=== PATIENT | female | born 1930 | race Caucasian/White ===

== ENCOUNTER 2022-08-28 14:53 | Inpatient (IN) | payer OTHER, MEDICAID ==
[~2022-08-28] VITALS: Ht 147.3 cm; Wt 49.9 kg
[2022-08-28 15:00] VITALS: BP_SYST 151
[2022-08-28 16:25] LABS: BASOPHILS % (AUTO) 0.5 % (0.0-2.0); EOSINOPHILS # (AUTO) 0.2 K/uL (0.0-0.4); EOSINOPHILS % (AUTO) 1.8 % (0.0-4.0); HEMATOCRIT 35.5 % (36-48); LYMPHOCYTES # (AUTO) 0.7 K/uL (1.0-5.5); LYMPHOCYTES % (AUTO) 7.3 % (20.5-51.5); MEAN CORPUSCULAR HEMOGLOBIN 30 pg (27-31); MEAN CORPUSCULAR HGB CONC 34 % (32-36); MEAN CORPUSCULAR VOLUME 88 fL (79.0-98.0); MONOCYTES # (AUTO) 0.6 K/uL (0.0-1.0); MONOCYTES % (AUTO) 6.6 % (1.7-9.3); NEUTROPHILS # (AUTO) 8.1 K/uL (1.8-7.7); NEUTROPHILS % (AUTO) 83.8 % (40.0-70.0); PLATELET COUNT (AUTO) 401 K/uL (130-430); RED BLOOD CELL COUNT(AUTO) 4.02 MIL/uL (4.2-6.2); RED CELL DISTRIBUTION WIDTH 13.8 % (9.0-15.0); WHITE BLOOD COUNT (AUTO) 9.7 K/uL (4.8-10.8)
[2022-08-28 16:53] LABS: ALANINE AMINOTRANSFERASE 46 U/L (12-78); ALBUMIN 2.4 g/dL (3.4-4.8); ANION GAP 7 (5-15); ASPARTATE AMINOTRANSFERASE 30 U/L (10-37); CALCIUM 9.4 mg/dL (8.4-11.0); CHLORIDE 100 mmol/L (98-107); CREATININE 0.83 mg/dL (0.55-1.30); GLUCOSE 182 mg/dL (70-99); TOTAL BILIRUBIN 0.3 mg/dL (0.0-1.0); UREA NITROGEN, BLOOD 29 mg/dL (8-21)
[2022-08-28] MEDS ORDERED: ASPIRIN 325 MG TABLET PO ONE (17:15)
[2022-08-28 18:03] LABS: BILIRUBIN,URINE NEGATIVE (NEGATIVE); BLOOD, URINE 1+ (NEGATIVE); CLARITY/URINE SLIGHTLY CLOUDY (CLEAR); COLOR,URINE YELLOW (YELLOW); GLUCOSE,URINE NEGATIVE (NEGATIVE); KETONES,URINE NEGATIVE (NEGATIVE); LEUKOCYTE ESTERASE ,URINE 3+ (NEGATIVE); NITRITE, URINE NEGATIVE (NEGATIVE); PROTEIN URINE TRACE (NEGATIVE); UROBILINOGEN,URINE 0.2 (0.2-1.0)
[2022-08-28 18:04] LABS: BACTERIA,URINE MANY /HPF (None Seen); WBC,URINE >100 /HPF (0-3)
[2022-08-28 18:05] LABS: MUCUS,URINE None Seen /LPF (None Seen)
[2022-08-28 22:45] VITALS: BP_SYST 148
[2022-08-29 06:08] VITALS: BP_SYST 140
[2022-08-29] MEDS ORDERED: cefTRIAXone 1 GM in D5W 50 ML IV ONE (09:30)
[2022-08-29] MEDS ORDERED: OXYB5TAB16 PO (12:26)
[2022-08-29] MEDS ORDERED: MELA10TA3 PO (12:26)
[2022-08-29] MEDS ORDERED: SENN8.6T19 PO (12:26)
[2022-08-29] MEDS ORDERED: ASPI-1393 PO (12:26)
[2022-08-29] MEDS ORDERED: IBUP-1969 PO (12:26)
[2022-08-29] MEDS ORDERED: TEMA15CA5 PO (12:26)
[2022-08-29] MEDS ORDERED: DOCU250C14 PO (12:26)
[2022-08-29] MEDS ORDERED: LISI10TA29 PO (12:26)
[2022-08-29] MEDS ORDERED: HYDROcodone/ACETAMIN 5-325 MG TAB (NORCO/ VICODIN) PO PRN (13:00)
[2022-08-29] MEDS ORDERED: LORazepam 2 MG/ML VIAL IVP PRN (13:00)
[2022-08-29] MEDS ORDERED: IBUPROFEN 600 MG TABLET PO PRN (13:00)
[2022-08-29] MEDS ORDERED: NON-FORMULARY MEDICATION (Melatonin 1 TAB) PO PRN (13:00)
[2022-08-29] MEDS ORDERED: ACETAMINOPHEN 325 MG TABLET PO PRN (13:00)
[2022-08-29] MEDS ORDERED: NALOXONE HCL 0.4 MG/ML AMP (NARCAN) IVP PRN ×2 (13:00)
[2022-08-29] MEDS ORDERED: ONDANSETRON HCL 4 MG/2 ML VIAL IVP PRN (13:00)
[2022-08-29] MEDS ORDERED: HYDROcodone/ACETAMIN 10-325 MG TAB PO PRN (13:00)
[2022-08-29] MEDS ORDERED: NORMAL SALINE 5 ML DISP.SYRIN IVF SCH (14:00)
[2022-08-29] MEDS: cefTRIAXone 1 GM in D5W 50 ML IV SCH (14:00)
[2022-08-29] MEDS: NORMAL SALINE 5 ML DISP.SYRIN IVF SCH ×2 (16:01→20:58)
[2022-08-29 16:18] VITALS: BP_SYST 125
[2022-08-29] MEDS: SENNOSIDES 8.6 MG TABLET PO SCH (17:47)
[2022-08-29 20:00] VITALS: BP_SYST 158
[2022-08-29] MEDS: DOCUSATE SODIUM 250 MG CAPSULE PO SCH (20:55)
[2022-08-30 02:56] VITALS: BP_SYST 155
[2022-08-30 06:25] LABS: BASOPHILS % (AUTO) 0.3 % (0.0-2.0); EOSINOPHILS # (AUTO) 0.2 K/uL (0.0-0.4); EOSINOPHILS % (AUTO) 2.3 % (0.0-4.0); HEMATOCRIT 29.9 % (36-48); HEMOGLOBIN 10.1 g/dL (12.0-16.0); LYMPHOCYTES % (AUTO) 10.1 % (20.5-51.5); MEAN CORPUSCULAR HEMOGLOBIN 30 pg (27-31); MEAN CORPUSCULAR HGB CONC 34 % (32-36); MEAN CORPUSCULAR VOLUME 88 fL (79.0-98.0); MONOCYTES # (AUTO) 0.8 K/uL (0.0-1.0); MONOCYTES % (AUTO) 8.2 % (1.7-9.3); NEUTROPHILS # (AUTO) 7.5 K/uL (1.8-7.7); NEUTROPHILS % (AUTO) 79.1 % (40.0-70.0); PLATELET COUNT (AUTO) 328 K/uL (130-430); RED BLOOD CELL COUNT(AUTO) 3.42 MIL/uL (4.2-6.2); RED CELL DISTRIBUTION WIDTH 13.4 % (9.0-15.0); WHITE BLOOD COUNT (AUTO) 9.5 K/uL (4.8-10.8)
[2022-08-30 06:52] LABS: ALANINE AMINOTRANSFERASE 28 U/L (12-78); ALBUMIN 2.1 g/dL (3.4-4.8); ANION GAP 8 (5-15); ASPARTATE AMINOTRANSFERASE 16 U/L (10-37); CALCIUM 8.5 mg/dL (8.4-11.0); CHLORIDE 102 mmol/L (98-107); CREATININE 0.72 mg/dL (0.55-1.30); GLUCOSE 135 mg/dL (70-99); PHOSPHORUS 3.3 mg/dL (2.7-4.5); TOTAL BILIRUBIN 0.4 mg/dL (0.0-1.0); UREA NITROGEN, BLOOD 20 mg/dL (8-21)
[2022-08-30 08:33] VITALS: BP_SYST 152
[2022-08-30] MEDS: ASPIRIN 81 MG TABLET(ECOTRIN) PO SCH (09:58)
[2022-08-30] MEDS: oxyBUTYnin chloride 5 MG TABLET PO SCH (09:58)
[2022-08-30] MEDS: DOCUSATE SODIUM 250 MG CAPSULE PO SCH ×2 (09:58→21:17)
[2022-08-30] MEDS: SENNOSIDES 8.6 MG TABLET PO SCH ×2 (09:59→18:15)
[2022-08-30] MEDS: LISINOPRIL 10 MG TABLET (PRINIVIL) PO SCH (09:59)
[2022-08-30 11:01] VITALS: BP_SYST 109
[2022-08-30] MEDS: cefTRIAXone 1 GM in D5W 50 ML IV SCH (13:33)
[2022-08-30] MEDS: NORMAL SALINE 5 ML DISP.SYRIN IVF SCH ×3 (13:34→21:17)
[2022-08-30] MEDS ORDERED: METOPROLOL SUCCINATE 25 MG TAB.SR.24H (TOPROL XL) PO ONE (15:00)
[2022-08-30 16:55] VITALS: BP_SYST 114
[2022-08-30 20:00] VITALS: BP_SYST 154
[2022-08-30] MEDS: MELATONIN 5 MG TABLET PO PRN (21:17)
[2022-08-30] MEDS: TEMAZEPAM 15 MG CAPSULE PO PRN (21:18)
[2022-08-31 04:00] VITALS: BP_SYST 121
[2022-08-31] MEDS: NORMAL SALINE 5 ML DISP.SYRIN IVF SCH ×3 (05:14→20:25)
[2022-08-31 07:41] LABS: BASOPHILS % (AUTO) 0.6 % (0.0-2.0); EOSINOPHILS # (AUTO) 0.3 K/uL (0.0-0.4); EOSINOPHILS % (AUTO) 3.8 % (0.0-4.0); HEMOGLOBIN 9.9 g/dL (12.0-16.0); MEAN CORPUSCULAR HEMOGLOBIN 30 pg (27-31); MEAN CORPUSCULAR HGB CONC 34 % (32-36); MEAN CORPUSCULAR VOLUME 88 fL (79.0-98.0); MONOCYTES # (AUTO) 0.7 K/uL (0.0-1.0); MONOCYTES % (AUTO) 8.2 % (1.7-9.3); NEUTROPHILS # (AUTO) 6.2 K/uL (1.8-7.7); NEUTROPHILS % (AUTO) 75.4 % (40.0-70.0); PLATELET COUNT (AUTO) 332 K/uL (130-430); RED BLOOD CELL COUNT(AUTO) 3.31 MIL/uL (4.2-6.2); RED CELL DISTRIBUTION WIDTH 13.6 % (9.0-15.0); WHITE BLOOD COUNT (AUTO) 8.2 K/uL (4.8-10.8)
[2022-08-31 07:55] LABS: ANION GAP 7 (5-15); C-REACTIVE PROTEIN QUANT 8.6 mg/dL (0-0.5); CALCIUM 8.6 mg/dL (8.4-11.0); CHLORIDE 103 mmol/L (98-107); CREATININE 0.84 mg/dL (0.55-1.30); GLUCOSE 127 mg/dL (70-99); UREA NITROGEN, BLOOD 22 mg/dL (8-21)
[2022-08-31 08:00] VITALS: BP_SYST 127
[2022-08-31 08:11] LABS: ERYTHROCYTE SEDIMENTATION RATE 92 MM/HR (0-20)
[2022-08-31] MEDS: ASPIRIN 81 MG TABLET(ECOTRIN) PO SCH (08:29)
[2022-08-31] MEDS: oxyBUTYnin chloride 5 MG TABLET PO SCH (08:29)
[2022-08-31] MEDS: SENNOSIDES 8.6 MG TABLET PO SCH ×2 (08:29→18:15)
[2022-08-31] MEDS: LISINOPRIL 10 MG TABLET (PRINIVIL) PO SCH (08:30)
[2022-08-31] MEDS: METOPROLOL SUCCINATE 25 MG TAB.SR.24H (TOPROL XL) PO SCH (08:30)
[2022-08-31] MEDS: DOCUSATE SODIUM 250 MG CAPSULE PO SCH ×2 (08:31→20:25)
[2022-08-31 12:56] VITALS: BP_SYST 126
[2022-08-31] MEDS: cefTRIAXone 1 GM in D5W 50 ML IV SCH (13:05)
[2022-08-31 17:08] VITALS: BP_SYST 132
[2022-08-31 20:00] VITALS: BP_SYST 145
[2022-08-31] MEDS: MELATONIN 5 MG TABLET PO PRN (20:26)
[2022-08-31] MEDS: TEMAZEPAM 15 MG CAPSULE PO PRN (20:26)
[2022-09-01 00:35] VITALS: BP_SYST 141
[2022-09-01] MEDS: NORMAL SALINE 5 ML DISP.SYRIN IVF SCH ×2 (06:15→13:34)
[2022-09-01 07:09] LABS: BASOPHILS % (AUTO) 0.4 % (0.0-2.0); EOSINOPHILS # (AUTO) 0.3 K/uL (0.0-0.4); EOSINOPHILS % (AUTO) 3.2 % (0.0-4.0); HEMATOCRIT 26.5 % (36-48); HEMOGLOBIN 9.1 g/dL (12.0-16.0); LYMPHOCYTES # (AUTO) 1.1 K/uL (1.0-5.5); LYMPHOCYTES % (AUTO) 11.1 % (20.5-51.5); MEAN CORPUSCULAR HEMOGLOBIN 30 pg (27-31); MEAN CORPUSCULAR HGB CONC 34 % (32-36); MEAN CORPUSCULAR VOLUME 87 fL (79.0-98.0); MONOCYTES # (AUTO) 0.8 K/uL (0.0-1.0); MONOCYTES % (AUTO) 8.4 % (1.7-9.3); NEUTROPHILS # (AUTO) 7.3 K/uL (1.8-7.7); NEUTROPHILS % (AUTO) 76.9 % (40.0-70.0); PLATELET COUNT (AUTO) 329 K/uL (130-430); RED BLOOD CELL COUNT(AUTO) 3.04 MIL/uL (4.2-6.2); RED CELL DISTRIBUTION WIDTH 13.7 % (9.0-15.0); WHITE BLOOD COUNT (AUTO) 9.5 K/uL (4.8-10.8)
[2022-09-01 07:41] LABS: ANION GAP 8 (5-15); C-REACTIVE PROTEIN QUANT 5.6 mg/dL (0-0.5); CALCIUM 8.4 mg/dL (8.4-11.0); CHLORIDE 103 mmol/L (98-107); CREATININE 0.83 mg/dL (0.55-1.30); GLUCOSE 125 mg/dL (70-99); UREA NITROGEN, BLOOD 29 mg/dL (8-21)
[2022-09-01 08:00] VITALS: BP_SYST 125
[2022-09-01 08:24] LABS: ERYTHROCYTE SEDIMENTATION RATE 74 MM/HR (0-20)
[2022-09-01] MEDS: DOCUSATE SODIUM 250 MG CAPSULE PO SCH (09:00)
[2022-09-01] MEDS: oxyBUTYnin chloride 5 MG TABLET PO SCH (09:43)
[2022-09-01] MEDS: SENNOSIDES 8.6 MG TABLET PO SCH (09:43)
[2022-09-01] MEDS: ASPIRIN 81 MG TABLET(ECOTRIN) PO SCH (09:44)
[2022-09-01] MEDS: LISINOPRIL 10 MG TABLET (PRINIVIL) PO SCH (09:44)
[2022-09-01] MEDS: METOPROLOL SUCCINATE 25 MG TAB.SR.24H (TOPROL XL) PO SCH (09:44)
[2022-09-01] MEDS ORDERED: levoFLOXacin 250 MG TABLET PO SCH (10:00)
[2022-09-01] MEDS ORDERED: APIX2.5T PO (11:21)
[2022-09-01] MEDS ORDERED: METO-540 PO (11:21)
[2022-09-01] MEDS ORDERED: LEVO250T73 PO (11:21)
[2022-09-01] MEDS ORDERED: APIXABAN 2.5 MG TABLET PO ONE (11:30)
[2022-09-01 11:35] VITALS: BP_SYST 132
[2022-09-01 15:29] VITALS: BP_SYST 124
[2022-09-01 17:23] VITALS: BP_SYST 129
[2022-09-01] MEDS ORDERED: APIXABAN 2.5 MG TABLET PO SCH (21:00)
== END 2022-09-01 17:10 | disposition home health service (06) | DRG 871 ==
LOC: SED 14:53 → STU 17:20
PROVIDERS: ADMIT Internal Medicine; ATTEND Internal Medicine
DX: A41.9 Sepsis, unspecified organism (principal); E43 Unspecified severe protein-calorie malnutrition; N30.00 Acute cystitis without hematuria; I48.20 Chronic atrial fibrillation, unspecified; E78.00 Pure hypercholesterolemia, unspecified; F02.80 Dementia in other diseases classified elsewhere, unspecified severity, without behavioral disturbance, psychotic disturbance, mood disturbance, and anxiety; G30.9 Alzheimer's disease, unspecified; E11.65 Type 2 diabetes mellitus with hyperglycemia; R79.89 Other specified abnormal findings of blood chemistry; D64.9 Anemia, unspecified; E88.09 Other disorders of plasma-protein metabolism, not elsewhere classified; B96.1 Klebsiella pneumoniae [K. pneumoniae] as the cause of diseases classified elsewhere; N28.1 Cyst of kidney, acquired; I10 Essential (primary) hypertension; J44.9 Chronic obstructive pulmonary disease, unspecified; Z20.822 Contact with and (suspected) exposure to COVID-19; Z79.01 Long term (current) use of anticoagulants; Z79.82 Long term (current) use of aspirin; Z79.899 Other long term (current) drug therapy
CPT/HCPCS: 36415; 71045; 76770; 80048; 80053; 81000; 83735; 83880; 84100; 84484; 85025; 85651-TC; 86140; 87040; 87086; 93005; 93306; 97110-GP; 97112-GP; 97116-GP; 97530-GP; 99285; G0378; J0696; J7060